=== PATIENT | male | born 1975 | race Caucasian/White ===

== ENCOUNTER 2020-04-06 18:16 | Emergency (ER) | payer OTHER, SELFPAY ==
[~2020-04-06] VITALS: Ht 190.5 cm; Wt 93.0 kg
[2020-04-06] MEDS ORDERED: LIDOCAINE 1% VIAL ONE ×2 (18:58→20:29)
[2020-04-06 19:06] VITALS: BP 151/91
[2020-04-06 19:11] VITALS: BP 151/91
--- NOTE | 2020-04-06 19:52 | DIREP ---
PROCEDURE:XRAY HAND MIN 3 VW-RT COMPARISON:None. INDICATIONS:LACERATION FINDINGS: BONES:There is an avulsion fracture of the tuft of the distal phalanx of the 3rd finger. JOINTS:Normal. SOFT TISSUES:Soft tissue injury is seen of the distal phalanx of the 3rd finger. OTHER:No additional findings. CONCLUSION:There is an avulsion fracture of the tuft of the distal phalanx of the 3rd finger. Dictated by: Nahid Cazares M.D. on 04/06/2020 at 07:49 PM
[2020-04-06 20:05] VITALS: BP 123/73
[2020-04-06] MEDS ORDERED: WATER ONE (20:26)
[2020-04-06] MEDS ORDERED: ADACEL VIAL IM ONE ×2 (21:11→21:30)
--- NOTE | 2020-04-06 21:11 | ER.PDOC ---
General Chief Complaint: Extremities Stated Complaint: RIGHT HAND-INDEX/MIDDLE FINGER LACERATION Time seen by MD: 20:00 Source: patient Exam Limitations: no limitations History of Present Illness Initial Comments 44 Y/O MALE WITH HX CUT RIGHT MIDDLE AND INDEX FINGERS ON TABLE SAW X 2 HRS AGO, NO OTHER COMPLAINTS, NO FEVER, COVID SCREEN NEG. PATIENT IS LEFT HANDED. Occurred: just prior to arrival Where: home Severity: moderate Modifying Factors: pain on movement Allergies: Coded Allergies: No Known Allergies (Unverified , 04/06/20) Past Medical History Medical History: no pertinent history Surgical History: no surgical history Social History Alcohol Use: rarely Drug Use: none Reviewed Nursing Reviewed: Vital Signs, Abn. Noted, Nursing Assessment Review of Systems Constitutional: no symptoms reported EENTM: no symptoms reported Respiratory: no symptoms reported Cardiovascular: no symptoms reported Gastrointestinal: no symptoms reported Genitourinary: no symptoms reported Musculoskeletal: see HPI Skin: no symptoms reported Psychiatric/Neurological: no symptoms reported Physical Exam General Appearance: Alert, No Apparent Distress Hand: tenderness Wrist: nml inspection, non-tender, nml ROM Forearm/Elbow: nml inspection, non-tender, nml ROM Arm/Shoulder: nml inspection, non-tender, nml ROM Skin: warm/dry Comments RIGHT HAND 2 CM LACERATION TO DISTAL RATLIFF INDEX FINGER, 3 CM LACERATION TO DISTAL MIDDLE FINGER THROUGH NAIL AND NAIL BED EXTENDING TO RATLIFF FINGER. ED LACERATION WOUND REPAIR # of Wounds/Lacerations Presen: 2 Wound Location & Length (Requi: 3 CM LACERATION R MIDDLE FINGER WITH NAIL BED, 2 CM LACERATION DISTAL INDEX Wound Length (cm): 3 Wound cleaned: betadine Distal NVT: neuro intact, vasc intact Anesthesia type: digital block Anesthesia: 1% Lidocaine Wound's Depth, Shape: into muscle, flap, irregular, nail-avulsed Wound Explored: no foreign body removed Tendon Intact: Yes Wound Repaired With: sutures Suture Size/Type: 5:0, 4:0, ethilon Suture Style: interupted Number of Sutures: 8 Layer Closure?: No Retention sutures placed: No Nail/Nail Matrix: nail excised Sterile Dressing Applied?: Yes Results/Orders Results/Orders Orders - TAMRA PALMER DO Xr Hand Rt (04/06/20 19:17) Water For Irrigation,Sterile (Water) (04/06/20 20:26) Lidocaine Hcl (Lidocaine 1% Vial) (04/06/20 20:29) Apply/Change Dressing (04/06/20 21:11) Diph,Pertuss(Acell),Tet Vac/Pf (Adacel V (04/06/20 21:30) Diph,Pertuss(Acell),Tet Vac/Pf (Adacel V (04/06/20 21:11) Vital Signs Date Time Temp Pulse Resp B/P (MAP) Pulse Ox O2 Delivery O2 Flow Rate FiO2 04/06/20 19:11 97.9 82 16 97 Room Air 04/06/20 19:06 97.9 82 16 04/06/20 19:06 97.9 82 16 97 04/06/20 19:06 97.9 82 16 97 Room Air Progress Progress LACERATION REPAIR --RIGHT MIDDLE PARTIAL NAIL REMOVER, IRRIGATED WITH 500CC NS, DIGIT BLOCK TO INDEX AND MIDDLE FINGERS, VICRYL 4-[address] IN NAIL BED, NYLON 5-0 2 SUTURES PLACED IN SKIN, INDEX FINGER IRRIGATED 500CC NS, NYLON 5-0 , 2 SUTURE PLACED IN SKIN. BOTH FINGER N/V/S INTACT, PROBED--NO FB, NORMAL FLEX AND EXTENSION BOTH FINGERS. Departure Time of Disposition: 21:08 Disposition: 01 HOME, SELF-CARE Impression: Primary Impression: Laceration of right index finger w/o foreign body w/o damage to nail Additional Impressions: Laceration of right middle finger w/o foreign body with damage to nail Fracture of phalanx of right middle finger Condition: Stable Patient Instructions: Fingertip Laceration Referrals: PCP,UNKNOWN (PCP) PRIMARY CARE PROVIDER CORI KHAN MD Additional Instructions: TO ED IF WORSE OR NO BETTER, FOLLOW UP WITH DR KHAN FOR OPEN TUFT FX OF RIGHT MIDDLE FINGER, KEEP CLEAN AND DRY, SOAP AND WATER 2-3 TIMES A DAY. SUTURES OUT IN 12 DAYS. RX KEFLEX 500MG. NO USE OF RIGHT HAND UNTIL PAIN RESOLVES. Duration or Time Spent with Pa: 30 MIN Return to Work/School Can a patient return to work?: Yes Problem Qualifiers TAMRA PALMER DO April 06, 2020 21:11
[2020-04-06] MEDS ORDERED: TRIPLE ANTIBIOTIC OINTMENT TP ONE (21:18)
[2020-04-06 21:30] VITALS: BP 129/75
--- NOTE | 2020-04-06 21:39 | NUR ---
APPLIED NEOSPORIN AND NONSTICK DRESSING TO SUTURES, WRAPPED WITH SOFT GAUZE AND PLACED FINGER SPLINTS TO PROFECT FINGERS DIRECTED BY DR. PALMER.
== END 2020-04-06 21:37 | disposition home or self-care (01) ==
LOC: ER 18:16
DX: S62.632A Displaced fracture of distal phalanx of right middle finger, initial encounter for closed fracture (principal); S61.312A Laceration without foreign body of right middle finger with damage to nail, initial encounter; S61.210A Laceration without foreign body of right index finger without damage to nail, initial encounter; W26.8XXA Contact with other sharp object(s), not elsewhere classified, initial encounter; Y93.89 Activity, other specified; Y92.098 Other place in other non-institutional residence as the place of occurrence of the external cause; Y99.8 Other external cause status
CPT/HCPCS: 11760; 12001; 73130; 90471; 90715; 99285; J2001 ×2; 99284